=== PATIENT | female | born 1940 | race Caucasian/White ===

== ENCOUNTER → 2022-10-10 10:57 | Outpatient (CLI) | payer MEDICARE, SELFPAY | PROVIDERS: PCP Physician Assistant Medical; Visit Provider Physician Assistant Medical | DX: M54.9 Dorsalgia, unspecified (principal) | CPT/HCPCS: 87086 ==

== ENCOUNTER 2023-05-24 21:58 | Emergency (ER) | payer MEDICARE, SELFPAY ==
[2023-05-24 22:06] VITALS: BP 181/77; PULSE 68; RESP 20; TEMP 36.8; O2SAT 96; BMI 24.0
--- NOTE | 2023-05-24 22:55 | PC.NURSE ---
pt states increased stress that past few days, she states I felt it coming on last night do I drank a glass of warm salty water with lemon, this did not relieve the pain which has increased in intensity tonight. pt states she has had this problem before and was been admitted to the hospital, the dx was a muscle cramp but not a skeletal muscle
--- NOTE | 2023-05-24 23:38 | ED_ITS ---
HPI - Extremity Injury (Lower) General Chief Complaint: Extremity Injury, Lower Stated Complaint: Excruciating pain and cramp in groin Time Seen by Provider: 05/24/23 23:36 Source: patient Mode of arrival: Wheelchair History of Present Illness HPI Narrative: 82-year-old woman who primarily lives in [place] with a 2nd home in [facility] with a history of hypertension, cardiac disease, chronic cough, mild cognitive deficit presents with excruciating pain in the right groin. She states that she has had this before but does not remember what diagnoses turned out to be. She describes no specific trauma. She points to a specific spot in her right groin that appears to actually be over the internal inguinal, now as the source of pain but palpation of the area does not reproduce any of her pain. She is almost quivering with the degree of pain that she is in. She states there has been no trauma, no fevers no dysuria no abdominal pain or constipation. She has not taken any pain medicine prior to arrival Related Data Home Medications Medication Instructions Recorded Confirmed Unobtainable 10/10/22 10/10/22 Allergies Allergy/AdvReac Type Severity Reaction Status Date / Time Cephalosporins Allergy Hives Verified 05/24/23 22:15 Review of Systems Review of Systems Narrative: Pertinent positive and negative findings as per HPI Patient History Medical History (Updated 05/25/23 @ 03:27 by Kenya Lino MD) Hypertension Gastric ulcer (~1994) Breast cancer (~1991) Social History Smoking Status: Former smoker Smoking Status: Former smoker alcohol intake frequency: 0-2 drinks per day Substance Use Type: does not use Exam Initial Vital Signs Initial Vital Signs: Vital Signs Temperature 98.3 F 05/24/23 22:06 Pulse Rate 68 05/24/23 22:06 Respiratory Rate 20 05/24/23 22:06 Blood Pressure 181/77 H 05/24/23 22:06 Pulse Oximetry 96 05/24/23 22:06 Oxygen Delivery Method Room Air 05/24/23 22:06 General: Older appearing woman, Well-nourished well-developed, quivering secondary to severe pain that she localizes to her right groin HEENT: Moist mucous membranes, normal sclera with reactive pupils, Respiratory: Lungs are clear to auscultation, no wheezing no rales no rhonchi. Full and symmetrical air movement Cardiac: Regular rate and rhythm no murmurs no bruits Abdomen: Soft, nontender, mi right lower quadrant/right adnexal tenderness Groin, with palpation along the entire right inguinal area she has absolutely no reproducible tenderness no inguinal adenopathy, no obvious hernia. Skin: Warm and dry, no rashes Neurologic: Grossly neurologically intact with no obvious asymmetries or abnormalities Extremities: No trauma, well perfused. No tenderness with internal or external rotation of the right hip Psych: Cooperative, difficulty remembering specifics of her medical history Course Orders Ordered: ED Orders 05/24/23 23:51 CT abdomen pelvis w con Stat Urinalysis and Microscopic Stat 05/24/23 23:57 Complete Blood Count AUTO DIFF Stat Comprehensive Metabolic Panel Stat Lactate (Lactic Acid) Stat Hydromorphone HCl (Hydromorphone 0.5 Mg Inj) 0.5 mg IV Q15MIN PRN PRN Reason: Pain, Last Admin: 05/25/23 00:08 Dose: 0.5 mg Documented By: KF Vital Signs Vital signs: Vital Signs - 8 hr 05/24/23 22:06 05/25/23 01:11 05/25/23 01:13 Temperature 98.3 F Pulse Rate 68 75 71 Respiratory Rate 20 Blood Pressure 181/77 H Pulse Oximetry 96 93 95 Oxygen Delivery Method Room Air Oxygen Flow Rate 05/25/23 01:13 05/25/23 01:30 05/25/23 02:00 Temperature Pulse Rate 67 61 Respiratory Rate Blood Pressure 171/60 H Pulse Oximetry 96 92 Oxygen Delivery Method Nasal Cannula Oxygen Flow Rate 2 05/25/23 02:30 05/25/23 02:46 05/25/23 02:46 Temperature Pulse Rate 58 L 66 Respiratory Rate Blood Pressure 153/65 H Pulse Oximetry 97 99 Oxygen Delivery Method Oxygen Flow Rate MDM - Extremity Injury (Lower) Lab Data 05/24/23 23:57 05/24/23 23:57 Labs: Lab Results 05/24/23 Range/Units 23:57 WBC 6.3 (4.5-11.0) X10^3/uL RBC 3.55 L (4.0-5.2) X10^6/uL Hgb 11.4 L (12.0-16.0) g/dL Hct 34.1 L (36-46) % MCV 96.0 (80-100) fL MCH 32.0 (26-34) PG MCHC 33.4 (30-36) % RDW 14.9 H (11.6-14.8) % Plt Count 159 (150-400) X10^3/uL Neut % (Auto) 71.6 (50-75) % Lymph % (Auto) 18.9 L (25-40) % [place] % (Auto) 6.4 (3-14) % Eos % (Auto) 2.3 (2-4) % Baso % (Auto) 0.8 (0-2) % Neut # (Auto) 4500 (8612-0496) /uL Lymph # (Auto) 1200 (6187-3069) /uL [place] # (Auto) 400 (0-900) /uL Eos # (Auto) 100 (0-450) /uL Baso # (Auto) 100 (0-100) /uL Sodium 140 (137-145) mmol/L Potassium 3.9 (3.4-5.1) mmol/L Chloride 112 H (98-107) mmol/L Carbon Dioxide 21 L (22-32) mmol/L BUN 23 H (7-17) mg/dL Creatinine 0.68 (0.52-1.04) mg/dL Estimated GFR > 60 (>60) mL/min BUN/Creatinine Ratio 33.8 H (6-22) Glucose 123 H (80-110) mg/dL Lactate 1.2 (0.7-2.1) mmol/L Calcium 9.3 (8.4-10.2) mg/dL Total Bilirubin 0.6 (0.2-1.3) mg/dL AST 28 (14-36) IU/L ALT 21 (<35) IU/L Alkaline Phosphatase 64 (38-126) U/L Total Protein 6.7 (6.3-8.2) g/dL Albumin 3.9 (3.5-5.0) g/dL Globulin 2.8 (1.7-4.1) g/dL Albumin/Globulin Ratio 1.4 (1.0-2.8) MDM Narrative Medical decision making narrative: CC: Severe right groin pain that she can localize with a single finger but is not reproducible with palpation over that area of localization Complicating co-morbidities: Difficulty remembering medical details or what workup has been done when she has had prior episodes of severe right groin Data collected from: patient Medical records reviewed: No records are available Differential considered: Right inguinal hernia, appendicitis, adnexal abnormality, pathologic fracture, hip osteoarthritis Exam documented above, pertinent findings include: She has some minor tenderness in the right lower quadrant toward the suprapubic area without rebound or guarding. I am unable to reproduce additional tenderness or actually localize the source of her pain Lab Test results independently reviewed as above. Pertinent findings: CBC White count is within normal limits. Mild anemia with hemoglobin at 14.4 and hematocrit at 34.1 Chemistries show normal renal function, slightly elevated BUN and slightly elevated chloride. No liver abnormality Imaging studies independently reviewed: CT scan of the abdomen to look at the abdomen pelvis as well as right hip and groin is ordered. CT scan is unremarkable. Specifically no appendicitis, nephrolithiasis, acute bony injuries or pathologic fractures, she is post right hip arthroplasty, no bladder wall thickening and no other explanation for her severe pain Treatments:.5mg iv dialudid, toradol Re-evaluations: Patient is feeling better after the Dilaudid but still having moderate amount of pain. Discussion: 82-year-old woman presents with 2 days of right groin pain with unremarkable workup. I do not suspect pathologic fractures, hip dislocations, septic joint, inguinal hernia, kidney stone, adnexal abnormality, intra- abdominal surgical process, skin does not suggest shingles outbreak, new compression fracture or acute nerve impingement. At this point I do not have a full explanation for the pain that she is experiencing. She states she had an ulcer in the past and does not take nonsteroidals orally anymore. She can take Tylenol and has not been taking it regularly. We discussed using narcotics and she declined this in light of the side effects. Believe she is safe for home discharge. We will send copies of CT scan and lab work with her should she follow up with her primary care provider. Discharge Plan Departure Patient Disposition: Home Clinical Impression: Right groin pain Instructions: DI for Hip Pain Activity Restrictions/Additional Instructions: Thank you for coming in I am sorry that you are suffering so much with this pain. In the emergency department you are given a dose of Dilaudid, an IV narcotic as well as Toradol, an anti-inflammatory medication. Both seem to have helped. Your workup included blood work that did not show any acute findings including no evidence of infection. We did a CT scan of your abdomen and pelvis that included your right hip. It did not show any acute findings specifically no inguinal hernia, intra-abdominal abscesses, appendicitis, acute back abnormality that might cause the hip pain. Your right hip prosthesis seems to be appropriate and there is no evidence of hip joint infection. Your skin does not suggest that this could be shingles. At this point, I do not have full explanation for your pain. I do think it is okay for you to go home. I have given you copies of your CT scan as well as your lab tests to share with your primary doctor if you are still having pain over the next day or so and choose to follow-up. The next step in your workup may be talking to your orthopedic surgeon about your hip. When you have groin pain exactly where you point but I am not able to reproduce it it makes me think about hip joint pain We discussed pain medication. I would recommend that you use to Tylenol every 6 hours as needed. Please do not left the pain becomes severe before you take a dose of Tylenol. We did discuss going home with narcotics but decided that the side effects of this outweigh the benefits. If you find that you are getting worse or develop any new symptoms, please feel free to return to the emergency department for further evaluation. Prescriptions: No Action Unobtainable Referrals: Beverly Mcgee PA-C [Primary Care Provider] - Stand Alone Forms: Patient Portal/API
--- NOTE | 2023-05-24 23:51 | DI.CT.S_ITS ---
PROCEDURE: CT ABDOMEN PELVIS W CON INDICATIONS: RLQ and Right groin pain TECHNIQUE: After the administration of intravenous contrast, axial sections acquired from the lung bases to the pubic symphysis. Coronal and sagittal reformats were performed. For radiation dose reduction, the following was used: automated exposure control, adjustment of mA and/or kV according to patient size. COMPARISON: None. FINDINGS: Image quality: Diagnostic. Lower Chest: No significant findings. ABDOMEN: Liver: No solid mass. Gallbladder: No radiopaque gallstones or wall thickening. Biliary ducts: No biliary dilation. Pancreas: No ductal dilation. Spleen: Size is within normal limits. Adrenal Glands: No adrenal nodules. Kidneys and Ureters: No hydronephrosis. No solid mass. No complex renal cystic lesion which requires follow up. Stomach and Bowel: Normal colonic caliber, without significant wall thickening. Small hiatal hernia. Appendix not definitively visualized, however the no secondary signs of inflammation in the right lower quadrant suggest acute appendicitis. Scattered colonic diverticulosis without acute inflammation. Peritoneum: No abnormal intraperitoneal fluid. No free air. Ventral Wall: No significant ventral hernia. Abdominal Nodes: No retroperitoneal or mesenteric adenopathy by size criteria. Vessels: Aorta and inferior vena cava are normal in size. Aorto bi iliac atherosclerotic calcifications. PELVIS: Pelvic Organs: Unremarkable. Bladder: No bladder wall thickening, accounting for underdistention. Pelvic Nodes: No enlarged lymph nodes. Miscellaneous: No inguinal hernias are seen. Bones: No acute or suspicious osseous abnormality. Status post right hip arthroplasty. IMPRESSION: Colonic diverticulosis without CT evidence of acute diverticulitis. No acute abdominopelvic process identified. Approved by: Alice Villegas M.D. on 05/25/2023 at 1:30
[2023-05-25] VITALS (10 sets, daily range): BP systolic 148–176; BP diastolic 60–77; PULSE 54–76; O2SAT 92–99
[2023-05-25] MEDS: HYDROMORPHONE 0.5 MG INJ IV (00:08)
[2023-05-25 00:10] LABS: Add Manual Diff / Slide Review NO; Basophils Absolute Auto 100 /uL (0-100); Basophils Percent Auto 0.8 % (0-2); Eosinophils Absolute Auto 100 /uL (0-450); Eosinophils Percent Auto 2.3 % (2-4); Hematocrit 34.1 % (36-46); Hemoglobin 11.4 g/dL (12.0-16.0); Lymphocytes Absolute Auto 1200 /uL (1100-4500); Lymphocytes Percent Auto 18.9 % (25-40); Mean Corpuscular HGB Conc 33.4 % (30-36); Monocytes Absolute Auto 400 /uL (0-900); Monocytes Percent Auto 6.4 % (3-14); Neutrophils Absolute Auto 4500 /uL (1500-7000); Neutrophils Percent Auto 71.6 % (50-75); Platelet Count 159 X10^3/uL (150-400); Red Blood Cell Count 3.55 X10^6/uL (4.0-5.2); Red Cell Distribution Width 14.9 % (11.6-14.8); White Blood Cell Count 6.3 X10^3/uL (4.5-11.0)
[2023-05-25 00:17] LABS: Lactate (Lactic Acid) 1.2 mmol/L (0.7-2.1)
[2023-05-25 00:18] LABS: Alanine Aminotransferase 21 IU/L (<35); Albumin 3.9 g/dL (3.5-5.0); Albumin Globulin Ratio 1.4 (1.0-2.8); Alkaline Phosphatase 64 U/L (38-126); Aspartate Aminotransferase 28 IU/L (14-36); BUN Creatinine Ratio 33.8 (6-22); Bilirubin Total 0.6 mg/dL (0.2-1.3); Blood Urea Nitrogen 23 mg/dL (7-17); Calcium 9.3 mg/dL (8.4-10.2); Carbon Dioxide 21 mmol/L (22-32); Chloride 112 mmol/L (98-107); Estimated Glomerular Filt Rate > 60 mL/min (>60); Globulin 2.8 g/dL (1.7-4.1); Glucose 123 mg/dL (80-110); HEMOLYSIS < 15 (0-50); Potassium 3.9 mmol/L (3.4-5.1); Sodium 140 mmol/L (137-145); Total Protein 6.7 g/dL (6.3-8.2)
[2023-05-25] MEDS: KETOROLAC 30 MG/ML VIAL 15 MG IV (03:42)
== END 2023-05-25 04:12 | disposition home or self-care (01) ==
PROVIDERS: Emergency Provider Emergency Medicine; PCP Physician Assistant Medical
DX: R10.31 Right lower quadrant pain (principal)
CPT/HCPCS: 36415; 74177; 80053; 83605; 85025; 96374; 96375; 99284; 99285; J1170; J1885; Q9967

== ENCOUNTER 2024-11-12 09:43 | Emergency (ER) | payer MEDICARE, SELFPAY ==
[2024-11-12] VITALS (14 sets, daily range): BP systolic 130–159; BP diastolic 58–100; PULSE 68–79; RESP 18–26; TEMP 37–37.1; O2SAT 92–94; BMI 23.5
--- NOTE | 2024-11-12 10:00 | DI.RAD.S_ITS ---
PROCEDURE: XR CHEST 2V INDICATIONS: cough TECHNIQUE: 2 views of the chest were acquired. COMPARISON: [facility], , CHEST 2 VIEW, 11/12/2013, 15:14. FINDINGS: Surgical changes and devices: Surgical clips over the right axilla. Lungs and pleura: Diffuse interstitial opacities and peribronchial cuffing. Mediastinum: Mediastinal contours appear normal. Heart size is enlarged. Bones and chest wall: No suspicious bony lesions. Overlying soft tissues appear unremarkable. IMPRESSION: [id number] pulmonary edema. Dictated by: Felix Snyder M.D. on 11/12/2024 at 10:26 Approved by: Felix Snyder M.D. on 11/12/2024 at 10:26
--- NOTE | 2024-11-12 10:01 | ED_ITS ---
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 Patient denies fever, chills, body aches, nausea, vomiting, diarrhea, constipation, urinary symptoms. Other than what is stated 14 point review of system is negative. Related Data Previous Rx's ?Medication ?Instructions ?Recorded furosemide 20 mg tablet (Lasix) 20 mg PO BID #6 tabs 0 11/12/24 Allergies Allergy/AdvReac Type Severity Reaction Status Date / Time Cephalosporins Allergy Hives Verified 11/12/24 09:54 Review of Systems Review of Systems ROS Unobtainable: All systems reviewed & are unremarkable except as noted in HPI and below Patient History Medical History (Updated 11/12/24 @ 12:34 by Rod Choi DO) Hypertension Gastric ulcer (~1994) Breast cancer (~1991) Social History Smoking Status: Unknown if ever smoked Smoking Status: Unknown if ever smoked alcohol intake frequency: 0-2 drinks per day Exam Narrative Exam Narrative: GENERAL: [84] year old patient appears stated age. Well-developed patient, in mild distress. HEAD: Atraumatic. Normocephalic. EYES: Pupils equal round and reactive. Extraocular motions intact. No scleral icterus. No injection or drainage. ENT: Nose without bleeding, purulent drainage. Throat without erythema, tonsillar hypertrophy or exudate. Airway patent. NECK: Trachea midline. Non tender CARDIOVASCULAR: Regular rate and rhythm without murmurs, gallops, or rubs. RESPIRATORY: Decreased breath sounds with crackles at the base GASTROINTESTINAL: Abdomen soft, non-tender, nondistended. EXTREMITIES: No edema or joint tenderness. BACK: Nontender without deformity or crepitance. No flank tenderness. NEURO: AOx3. SKIN: No rash or erythema of visible areas Initial Vital Signs Initial Vital Signs: Vital Signs Temperature 98.6 F 11/12/24 09:45 Pulse Rate 75 11/12/24 09:45 Respiratory Rate 18 11/12/24 09:45 Blood Pressure 159/65 H 11/12/24 09:45 Pulse Oximetry 94 11/12/24 09:45 Oxygen Delivery Method Room Air 11/12/24 09:45 Scores HEART Score Heart Score history: Slightly Suspicious Heart Score EKG: Normal Heart Score Age: > or = 65 years old Heart Score risk factors: 1-2 risk factors Heart Score troponin: < or = to normal limit Heart Score Total: 3 Course Orders Ordered: Discontinued Medications Furosemide (Furosemide 40 Mg/4 Ml Vial) 40 mg IV NOW ONE Stop: 11/12/24 12:32 Last Admin: 11/12/24 12:46 Dose: 40 mg Documented By: LM Vital Signs Vital signs: Vital Signs - 8 hr 11/12/24 09:45 Temperature 98.6 F Pulse Rate 75 Respiratory Rate 18 Blood Pressure 159/65 H Pulse Oximetry 94 Oxygen Delivery Method Room Air MDM - URI/Sore Throat Lab Data 11/12/24 11:46 11/12/24 11:46 Labs: Lab Results 11/12/24 11/12/24 Range/Units 11:12 11:46 WBC 10.7 (4.5-11.0) X10^3/uL RBC 3.47 L (4.0-5.2) X10^6/uL Hgb 11.2 L (12.0-16.0) g/dL Hct 32.9 L (36-46) % MCV 94.9 (80-100) fL MCH 32.3 (26-34) PG MCHC 34.0 (30-36) % RDW 14.3 (11.6-14.8) % Plt Count 155 (150-400) X10^3/uL Neut % (Auto) 85.4 H (50-75) % Lymph % (Auto) 6.2 L (25-40) % [place] % (Auto) 5.3 (3-14) % Eos % (Auto) 2.5 (2-4) % Baso % (Auto) 0.6 (0-2) % Neut # (Auto) 9100 H (1357-3817) /uL Lymph # (Auto) 700 L (1251-2285) /uL [place] # (Auto) 600 (0-900) /uL Eos # (Auto) 300 (0-450) /uL Baso # (Auto) 100 (0-100) /uL Sodium 139 (137-145) mmol/L Potassium 4.3 (3.4-5.1) mmol/L Chloride 104 (98-107) mmol/L Carbon Dioxide 25 (22-32) mmol/L BUN 28 H (7-17) mg/dL Creatinine 1.02 (0.52-1.04) mg/dL Estimated GFR 54 L (>60) mL/min BUN/Creatinine Ratio 27.5 H (6-22) Glucose 125 H (70-99) mg/dL Calcium 9.5 (8.4-10.2) mg/dL Total Bilirubin 0.6 (0.2-1.3) mg/dL AST 24 (14-36) IU/L ALT 17 (<35) IU/L Alkaline Phosphatase 86 (38-126) U/L Total Creatine Kinase 56 (30-135) U/L Troponin I 0.022 (0.01-0.034) ng/mL NT-Pro-B Natriuret Pep 1380 H (<450) pg/mL Total Protein 7.4 (6.3-8.2) g/dL Albumin 4.2 (3.5-5.0) g/dL Globulin 3.2 (1.7-4.1) g/dL Albumin/Globulin Ratio 1.3 (1.0-2.8) Lipase 85 (23-300) U/L SARS-CoV-2 (PCR) Negative (Negative) Influenza A (RT-PCR) Flu a negative (NEGATIVE) Influenza B (RT-PCR) Flu b negative (NEGATIVE) RSV (PCR) Negative (Negative) Imaging Data Chest x-ray: Radiologist's Impression: [address] [address] XRay Report Signed Patient: Delores Alcantara MR#: [id number] : 1940 Acct:[id number] Age/Sex: 84 / F Date of Service: 11/12/24 Loc: ED Accession Number: [id number] Procedure: XR chest 2V Ordering Provider: Rod Choi D.O. PROCEDURE: XR CHEST 2V INDICATIONS: cough TECHNIQUE: 2 views of the chest were acquired. [facility], 11/12/2013, 15:14. FINDINGS: Surgical changes and devices: Surgical clips over the right axilla. Lungs and pleura: Diffuse interstitial opacities and peribronchial cuffing. Mediastinum: Mediastinal contours appear normal. Heart size is enlarged. Bones and chest wall: No suspicious bony lesions. Overlying soft tissues appear unremarkable. IMPRESSION: [id number]-[id number] pulmonary edema. ECG Data Interpretation: NSR LBBB HR 69 CA 168 QRS [address]-t wave change NO previous EKG to compare against MDM Narrative Medical decision making narrative: All lab work, vital signs, nurse triage note, medication list, previous ER visits, and all imaging studies reviewed. Chest x-ray showed [id number] pulmonary edema. Hemoglobin 11.2 BUN 28 glucose 120 troponin 0.022 BNP 1380. COVID flu RSV negative. Heart score 3. Patient given Lasix 40 mg IV here will be discharged on Lasix and to follow up PCP. Differential diagnosis COVID flu RSV CHF COPD pneumonia. Discharge Plan Departure Patient Disposition: Home Clinical Impression: CHF (congestive heart failure) Qualifiers: Heart failure type: unspecified Heart failure chronicity: acute Qualified Code(s): I50.9 - Heart failure, unspecified Instructions: DI for Heart Failure Activity Restrictions/Additional Instructions: Return with new or worsening symptoms. Take your medicines directed. Follow up PCP 1-2 weeks if no improvement in symptoms. Prescriptions: New furosemide [Lasix] 20 mg tablet 20 mg PO BID Qty: 6 0RF Referrals: Beverly Mcgee PA-C [Primary Care Provider, Medical] Stand Alone Forms: Patient Portal/API
--- NOTE | 2024-11-12 11:18 | EKG_ITS ---
[address] [address] Test Date: 2024-11-12 Pat Name: Delores Alcantara Department: [facility] Room: Gender: Female Through Operator: : 1940 Requested By: Order Number: [id number] Reading MD: See Ward Measurements Intervals [place] Rate: 69 P: 42 WV: 168 QRS: -54 QRSD: 148 T: 102 QT: 444 QTc: 475 Interpretive Statements Normal sinus rhythm Left axis deviation Left bundle branch block Electronically Signed On 11-13-2024 8:37:58 PDT by See Ward
--- NOTE | 2024-11-12 11:52 | PC.NURSE ---
Pt c/o pain to groin when coughing /10. When resting pt denies pain when not coughing
[2024-11-12 11:56] LABS: Add Manual Diff / Slide Review NO; Hematocrit 32.9 % (36-46); Hemoglobin 11.2 g/dL (12.0-16.0); Lymphocytes Absolute Auto 700 /uL (1100-4500); Mean Corpuscular HGB Conc 34.0 % (30-36); Mean Corpuscular Hemoglobin 32.3 PG (26-34); Mean Corpuscular Volume 94.9 fL (80-100); Platelet Count 155 X10^3/uL (150-400)
[2024-11-12 12:02] LABS: Influenza A - CEPHEID Flu A NEGATIVE (NEGATIVE); Influenza B - CEPHEID Flu B NEGATIVE (NEGATIVE)
[2024-11-12 12:03] LABS: COVID-19 CEPHEID 4-PLEX PCR Negative (Negative)
[2024-11-12 12:11] LABS: Alanine Aminotransferase 17 IU/L (<35); Albumin 4.2 g/dL (3.5-5.0); Albumin Globulin Ratio 1.3 (1.0-2.8); Alkaline Phosphatase 86 U/L (38-126); Blood Urea Nitrogen 28 mg/dL (7-17); Calcium 9.5 mg/dL (8.4-10.2); Carbon Dioxide 25 mmol/L (22-32); Chloride 104 mmol/L (98-107); Creatine Kinase 56 U/L (30-135); Estimated Glomerular Filt Rate 54 mL/min (>60); Globulin 3.2 g/dL (1.7-4.1); Glucose 125 mg/dL (70-99); HEMOLYSIS < 15 (0-50); Lipase 85 U/L (23-300); Potassium 4.3 mmol/L (3.4-5.1); Sodium 139 mmol/L (137-145); Total Protein 7.4 g/dL (6.3-8.2)
[2024-11-12 12:23] LABS: NT-proBNP (BNP-Adult 18+) 1380 pg/mL (<450); Troponin I 0.022 ng/mL (0.01-0.034)
[2024-11-12] MEDS: FUROSEMIDE 40 MG/4 ML VIAL IV (12:46)
== END 2024-11-12 13:22 | disposition home or self-care (01) ==
PROVIDERS: Emergency Provider Family Medicine; PCP Physician Assistant Medical
DX: I11.0 Hypertensive heart disease with heart failure (principal); I50.9 Heart failure, unspecified; R05.9 Cough, unspecified; J44.9 Chronic obstructive pulmonary disease, unspecified
CPT/HCPCS: 36415; 71046; 80053; 82550; 83690; 83880; 84484; 85025; 87637; 93005; 96374; 99284; J1938